=== PATIENT | male | born 1940 | race Caucasian/White ===

== ENCOUNTER 2017-12-02 19:46 | Inpatient (IN) | payer MEDICARE ==
[2017-12-02] MEDS ORDERED: Acetaminophen TAB* 325 MG PO ONE (21:41)
[2017-12-02] MEDS ORDERED: NS 0.9% 1000 ML* 1,000 ML IV ONE (21:43)
[2017-12-02 22:17] LABS: ABS Basophils 0 10^3/ul (0-0.2); ABS Eosinophils 0 10^3/ul (0-0.6); ABS Lymphocytes 0.4 10^3/ul (1.0-4.8); ABS Monocytes 0.9 10^3/ul (0-0.8); ABS Neutrophils 9.9 10^3/ul (1.5-7.7); ABS Nucleated RBC 0 10^3/ul; Eosinophil % 0.1 % (0-6); Hematocrit 41 % (42-52); Hemoglobin 14.6 g/dl (14.0-18.0); Lymphocyte % 3.7 % (25-47); Mean Corpuscular HGB Conc 36 g/dl (31-36); Mean Corpuscular Hemoglobin 31 pg (27-31); Mean Corpuscular Volume 88 fL (80-94); Mean Platelet Volume 8 um3 (7.4-10.4); Nucleated Red Blood Cells % 0.1; Platelet Count 187 10^3/ul (150-450); Red Blood Count 4.65 10^6/ul (4.0-5.4); Red Cell Distribution Width 13 % (10.5-15); White Blood Count 11.3 10^3/ul (3.5-10.8)
[2017-12-02 22:27] LABS: INR 1.14 (0.77-1.02)
[2017-12-02 22:32] LABS: EGFR Non-African American 91.1 (>60)
[2017-12-02] MEDS ORDERED: Acetaminophen TAB* 325 MG PO PRN (23:19)
--- NOTE | 2017-12-02 23:34 | ED ---
Ronen Mcintyre Angela, scribed for Deedee Wiseman MD on 12/02/17 at 2141 . Complex/Multi-Sys Presentation - HPI Summary HPI Summary: This pt is a 77 y/o male, accompanied by , presenting to [facility] c/o nonproductive cough x1 week. Per , pt has become disoriented today. Pt had a fever today at 101 F. additionally notes the pt fell today 2-3 times and vomited today about 3 times. Pt denies SOB. reports the pt saw his PCP, Dr. Fink, 3 days ago but was not given medications and was told to call back if pt's symptoms persisted. Pt called back his PCP's office today and was prescribed Zithromax and cough medicine, pt was not seen in the office today. Last time pt took Zithromax was at 14:00 today. He also took 2 doses of the cough medicine today. Pt is currently on atorvastatin, flexetin, baby aspirin. - History Of Current Complaint Chief Complaint: EDFever Hx Obtained From: Patient, Family/Commercial Coordinator - Onset/Duration: Lasting Days, Still Present Timing: Days Severity Currently: Moderate Location: Negative Aggravating Factor(s): nothing Alleviating Factor(s): nothing Associated Signs And Symptoms: Positive: Cough, Nausea, Vomiting, Fever, Other - POS: disorientation, multiple falls today.. Negative: SOB - Allergies/Home Medications Allergies/Adverse Reactions: Allergies Allergy/AdvReac Type Severity Reaction Status Date / Time MS Sulfa Antibiotics Allergy GI Upset Verified 07/09/14 13:16 [Sulfa Antibiotics] Home Medications: Home Medications Aspirin EC Low Dose* [Ecotrin EC Low Dose 81 MG*] 81 mg PO DAILY 12/02/17 [ History Confirmed 12/02/17] Atorvastatin* [Lipitor*] 10 mg PO DAILY 12/02/17 [History Confirmed 12/02/17] FLUoxetine CAP* [PROzac CAP*] 10 mg PO DAILY 12/02/17 [History Confirmed ] Losartan TAB* [Cozaar TAB*] 100 mg PO DAILY 12/02/17 [History Confirmed 12/02/17 ] Tamsulosin CAP* [Flomax CAP*] 0.4 mg PO DAILY 12/02/17 [History Confirmed ] amLODIPine TAB* [Norvasc 5 mg TAB*] 10 mg PO DAILY 12/02/17 [History Confirmed 12/02/17] PMH/Surg Hx/FS Hx/Imm Hx Endocrine/Hematology History: Denies: Hx Diabetes Cardiovascular History: Denies: Hx Hypertension, Hx Pacemaker/ICD History: Denies: Hx Renal Disease Sensory History: Denies: Hx Hearing Aid Psychiatric History: Denies: Hx Panic Disorder - Cancer History Cancer Type, Location and Year: 1996- BLADDER Hx Chemotherapy: Yes - Surgical History Surgery Procedure, Year, and Place: DISCETOMY - L5 - 1996- [facility]. STAGE 1 - MAGLINANCY REMOVED FROM BLADDER W/ CHEMO - 12 YRS AGO. CHOLECYTECTOMY-1969. Rt KNEE - ARTHROSCOPIC. PINIDAL CYST -1959 Infectious Disease History: No Infectious Disease History: Denies: Traveled Outside the [place] in Last 30 Days - Family History Known Family History: Positive: Diabetes - Father - Social History Alcohol Use: None Substance Use Type: Reports: None Smoking Status (MU): Never Smoked Tobacco Review of Systems Positive: Fever Positive: Cough Positive: Vomiting, Nausea Neurological: Other - disorientation, multiple falls All Other Systems Reviewed And Are Negative: Yes Physical Exam - Summary Physical Exam Summary: VITAL SIGNS: Reviewed. GENERAL: Patient is a well-developed and nourished male who is lying comfortable in the stretcher. Patient is not in any acute respiratory distress. HEAD AND FACE: No signs of trauma. No ecchymosis, hematomas or skull depressions. No sinus tenderness. EYES: PERRLA, EOMI x 2, No injected conjunctiva, no nystagmus. EARS: Hearing grossly intact. Ear canals and tympanic membranes are within normal limits. MOUTH: Oropharynx within normal limits. NECK: Supple, trachea is midline, no adenopathy, no JVD, no carotid bruit, no c- spine tenderness, neck with full ROM. CHEST: Symmetric, no tenderness at palpation LUNGS: Clear to auscultation bilaterally. No wheezing or crackles. CVS: Regular rate and rhythm, S1 and S2 present, no murmurs or gallops appreciated. ABDOMEN: Soft, non-tender. No signs of distention. No rebound no guarding, and no masses palpated. Bowel sounds are normal. EXTREMITIES: FROM in all major joints, no edema, no cyanosis or clubbing. NEURO: Alert and oriented x 3. No acute neurological deficits. Speech is normal and follows commands. SKIN: Dry and warm Triage Information Reviewed: Yes Vital Signs On Initial Exam: Initial Vitals Temp Pulse Resp BP Pulse Ox 100.7 F 71 18 157/59 90 12/02/17 19:51 12/02/17 19:51 12/02/17 19:51 12/02/17 19:51 12/02/17 19:51 Vital Signs Reviewed: Yes Diagnostics - Vital Signs Vital Signs Temp Pulse Resp BP Pulse Ox 12/02/17 19:51 100.7 F 71 18 157/59 90 - Laboratory Result Diagrams: 12/02/17 22:04 12/02/17 22:04 Lab Statement: Any lab studies that have been ordered have been reviewed, and results considered in the medical decision making process. - Radiology Chest XR Xray Interpretation: No Acute Changes - normal chest XR. Radiology Interpretation Completed By: ED Physician Complex Multi-Symp Course/Dx Assessment/Plan: This pt is a 77 y/o male, accompanied by , presenting to [facility] c/o nonproductive cough x1 week. Per , pt has become disoriented today. Pt had a fever today at 101 F. additionally notes the pt fell today 2-3 times and vomited today about 3 times. Pt denies SOB. Pt was prescribed Zithromax and cough medicine today by PCP. Test results show WBC of 11.3, sodium of 125, glucose of 168. Influenza A and B is negative. Chest XR is negative. In the ED course, the pt was given IV fluids and Tylenol. I discussed pt care with Dr. Stephens, hospitalist, who has agreed to admit the pt. Dx: confusion and weakness. - Diagnoses Provider Diagnoses: Weakness, Confusion - Physician Notifications Discussed Care Of Patient With: Awilda Stephens Time Discussed With Above Provider: 22:40 Instructed by Provider To: Other - I discussed pt care with Dr. Stephens, hospitalist, who has agreed to admit the pt. Discharge - Discharge Plan Condition: Stable Disposition: ADMITTED TO [facility] Referrals: Hannah Fink MD [Primary Care Provider] - The documentation as recorded by the Ronen white Angela accurately reflects the service I personally performed and the decisions made by me, Deedee Wiseman MD.
--- NOTE | 2017-12-03 00:52 | HP ---
CC: Dr. Fink * HISTORY AND PHYSICAL: DATE OF ADMISSION: 12/02/17 PRIMARY CARE PROVIDER: Dr. Fink. UROLOGIST: Dr. Soriano. CHIEF COMPLAINT: Disorientation, vomiting, and fever. HISTORY OF PRESENT ILLNESS: Mr. Tabor is a 77-year-old male who for the last 1 week has been ill. He saw his primary care provider, Dr. Fink, towards beginning of his illness and she felt that he likely had a viral illness. He was informed to contact the office if he continued to worsen. The patient contacted Dr. Fink's office and stated that he was not improving and therefore , was prescribed a Z-Kedar to be started today. The patient did take 500 mg of azithromycin. Additionally, he took a dose of the Robitussin with codeine cough syrup he had been given earlier in the week. Following the administration of the azithromycin and Robitussin with codeine, the patient began to have vomiting. Per the patient's , he was vomiting all afternoon. He was noted to be weak. He was disoriented and very confused. She stated for example that he looked at his phone, not knowing how to use it. Additionally, he fell. The patient has had significant head/nasal congestion. He has been bringing up sputum. He does not know if it is discolored. He did have a fever of 102.6 on evening of 12/02/17 prior to coming to the emergency room. The patient states that he is feeling much better after arriving to the emergency room. His also notes that overall his mental status is back to normal. PAST MEDICAL HISTORY: 1. History of bladder cancer. 2. Hypertension. 3. BPH. 4. Hyperlipidemia. 5. Depression. PAST SURGICAL HISTORY: 1. TURBT. 2. Lumbar back surgery. 3. Pilonidal cyst removal. MEDICATIONS: 1. Flomax 0.4 mg p.o. daily. 2. Losartan 100 mg p.o. daily. 3. Prozac 10 mg p.o. daily. 4. Amlodipine 10 mg p.o. daily. 5. Lipitor 10 mg p.o. daily. 6. Aspirin 81 mg p.o. daily. ALLERGIES: BACTRIM. FAMILY HISTORY: Mom is at the age of 79 from ruptured aortic aneurysm. Dad at the age of 87 of "old age." The patient has 2 siblings that are in their mid 80s and 3 brothers that are living. SOCIAL HISTORY: The patient is a former smoker, he quit at the age of 35. He drinks 2 glasses of wine per day. 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 He is . He has 3 children. He indicates that his Jodi is his healthcare proxy. REVIEW OF SYSTEMS: A complete 11-system review of systems is obtained. Pertinent positives and negatives are as per the HPI and in addition, the patient does admit to fever and very poor appetite over the last 1 week. PHYSICAL EXAMINATION GENERAL: The patient is a well-developed elderly male sitting in the stretcher , in no acute distress. VITAL SIGNS: Blood pressure 157/59, pulse 71, respirations 18, temp 100.7, O2 sat 90% on room air. HEENT: Pupils are equal, round, and reactive to light. Extraocular muscles are intact. Oropharynx is clear. Oral mucosa is moist. There is no submandibular, cervical, or supraclavicular adenopathy. Thyroid is not enlarged. No thyroid nodules are noted. PULMONARY: Lungs are clear to auscultation bilaterally, though breath sounds are somewhat diminished throughout. CARDIAC: Normal S1, S2. Regular rate and rhythm. I do not appreciate any murmurs. There is no lower extremity edema. ABDOMEN: Bowel sounds present. Abdomen is soft, nontender, nondistended. MUSCULOSKELETAL: There is no cyanosis or clubbing of the digits. There is full active range of motion of all 4 extremities. SKIN: Warm and dry. There are no rashes. NEUROLOGIC: Cranial nerves II through XII are grossly intact. Sensation is intact to light touch throughout. Strength is 5/5 and symmetric in both upper and lower extremities bilaterally. PSYCH: The patient is alert, he is oriented x3. Affect appears appropriate. LABORATORY DATA: WBC 11.3, hemoglobin 14.6, hematocrit 41, platelets 187,000. INR 1.14. Sodium 125, potassium 3.9, chloride 94, CO2 of 21, BUN 12, creatinine 0.82, glucose 168, lactic acid 1.7, calcium 9.3, bilirubin 1.2, AST 17, ALT 20, alk phos 77, troponin 0.01. Albumin 4.1. Influenza A and B negative. IMAGING: Chest x-ray to my interpretation appears clear. ASSESSMENT AND PLAN: Mr. Tabor is a 77-year-old male with a history of hypertension, hyperlipidemia, benign prostatic hypertrophy who presents to the emergency room with complaints of confusion, weakness, and fever and is admitted for possible pneumonia. 1. Possible community acquired pneumonia. The patient has been managing his symptoms conservatively up until the day of admission when he began a Z-Kedar. Following the first dose of Z-Kedar, the patient did develop significant vomiting , disorientation and weakness. He also took a dose of Robitussin with codeine. I am more suspicious the patient may have developed vomiting secondary to the Robitussin with codeine. The patient will continue on azithromycin, though we will change to IV and add ceftriaxone 1 g IV daily. The patient will have a procalcitonin added to his labs from the emergency room as well as a CRP. The patient will be under observation status. His O2 saturation is marginal at 90% . We will monitor this closely. 2. Hyponatremia. I suspect this is secondary to volume depletion/dehydration. Will give NS overnight and recheck BMP in the morning. 3. Hypertension. The patient's blood pressure is under fair control. He will be maintained on his usual home medication regimen and adjustments will be made if necessary. 4. Benign prostatic hypertrophy. Continue Flomax. 5. Hyperlipidemia. Continue Lipitor. 6. DVT prophylaxis. According to the Adult Thrombosis Prophylaxis Risk Factor Assessment Guide, the patient had total risk factor score of 6, making him high risk. He will be placed on heparin 5000 units subcutaneous q.8 hours. 7. Code status is full. TIME SPENT: Sixty-five minutes was spent admitting this patient. [id number]/CPS #: [id number] MTDD
[2017-12-03 00:55] LABS: Urine Appearance Clear; Urine Blood Negative (Negative); Urine Color Yellow; Urine Ketones Negative (Negative); Urine Protein 1+(30 mg/dL) (Negative); Urine Specific Gravity 1.011 (1.010-1.030); Urine Urobilinogen Negative (Negative)
[2017-12-03] MEDS: NS 0.9% 1000 ML* 1,000 ML IV SCH ×2 (01:07→13:43)
[2017-12-03] MEDS: Benzonatate CAP* 100 MG PO PRN (04:44)
[2017-12-03] MEDS: Heparin VIAL(*) 5000 UNITS/ML VIAL (FIVE THOUSAND) SUBCUT SCH ×3 (05:34→21:27)
[2017-12-03 06:46] LABS: Hematocrit 40 % (42-52); Hemoglobin 14.2 g/dl (14.0-18.0); Mean Corpuscular HGB Conc 36 g/dl (31-36); Mean Corpuscular Hemoglobin 32 pg (27-31); Mean Corpuscular Volume 88 fL (80-94); Mean Platelet Volume 8 um3 (7.4-10.4); Platelet Count 192 10^3/ul (150-450); Red Blood Count 4.48 10^6/ul (4.0-5.4); Red Cell Distribution Width 13 % (10.5-15); White Blood Count 9.6 10^3/ul (3.5-10.8)
--- NOTE | 2017-12-03 07:27 | RAD ---
INDICATION: Cough. COMPARISON: There is a prior study from April 30, 2016. TECHNIQUE: A portable view of the chest was obtained. FINDINGS: Cardiac and mediastinal contours appear to be within normal limits. The lungs are clear. No pleural effusion is seen. IMPRESSION: NO EVIDENCE FOR ACUTE DISEASE.
[2017-12-03] MEDS ORDERED: cefTRIAXone(*) 1 GM in NS 0.9% 50 ML* 50 ML IVPB SCH (09:00)
[2017-12-03] MEDS: Losartan TAB* 25 MG PO SCH (09:32)
[2017-12-03] MEDS: Aspirin EC Low Dose* 81 MG TAB.EC PO SCH (09:33)
[2017-12-03] MEDS: FLUoxetine CAP* 10 MG PO SCH (09:33)
[2017-12-03] MEDS: Tamsulosin CAP* 0.4 MG PO SCH (09:33)
[2017-12-03] MEDS: amLODIPine TAB* 5 MG PO SCH (09:33)
[2017-12-03] MEDS: Atorvastatin* 10 MG TAB PO SCH (09:33)
[2017-12-03] MEDS: Azithromycin IV(*) 500 MG in NS 0.9% 250 ML* 250 ML IVPB SCH (10:15)
--- NOTE | 2017-12-03 17:26 | PN ---
Subjective Date of Service: 12/03/17 Interval History: feeling a little better today. still with a cough productive of thick sputum. desaturated to 80s at rest. Family History: Unchanged from Admission Social History: Unchanged from Admission Past Medical History: Unchanged from Admission Objective Active Medications: Acetaminophen (Tylenol Tab*) 650 mg PO Q4H PRN PRN Reason: pain/fever Amlodipine Besylate (Norvasc Tab*) 10 mg PO DAILY [facility] Last Admin: 12/03/17 09:33 Dose: 10 mg Aspirin (Aspirin Ec Low Dose*) 81 mg PO DAILY [facility] Last Admin: 12/03/17 09:33 Dose: 81 mg Atorvastatin Calcium (Lipitor*) 10 mg PO DAILY [facility] Last Admin: 12/03/17 09:33 Dose: 10 mg Benzonatate (Tessalon Cap*) 200 mg PO TID PRN PRN Reason: COUGH Last Admin: 12/03/17 04:44 Dose: 200 mg Fluoxetine HCl (Prozac Cap*) 10 mg PO DAILY [facility] Last Admin: 12/03/17 09:33 Dose: 10 mg Heparin Sodium (Porcine) (Heparin Vial(*)) 5,000 units SUBCUT Q8HR [facility] Last Admin: 12/03/17 13:43 Dose: 5,000 units Sodium Chloride (Ns 0.9% 1000 Ml*) 1,000 mls @ 100 mls/hr IV PER RATE [facility] Last Admin: 12/03/17 13:43 Dose: 100 mls/hr Azithromycin 500 mg/ Sodium (Chloride) 250 mls @ 250 mls/hr IVPB Q24H [facility] Last Admin: 12/03/17 10:15 Dose: 250 mls/hr Ceftriaxone Sodium 1 gm/ (Dextrose) 50 mls @ 200 mls/hr IVPB Q24H [facility] Losartan Potassium (Cozaar Tab*) 100 mg PO DAILY [facility] Last Admin: 12/03/17 09:32 Dose: 100 mg Tamsulosin HCl (Flomax Cap*) 0.4 mg PO DAILY [facility] Last Admin: 12/03/17 09:33 Dose: 0.4 mg Vital Signs - 8 hr 12/03/17 12/03/17 12/03/17 11:35 13:49 16:31 Temperature 99.7 F 98.9 F 98.8 F Pulse Rate 65 56 Respiratory 17 24 Rate Blood Pressure 114/89 116/45 (mmHg) O2 Sat by Pulse 90 95 Oximetry Oxygen Devices in Use Now: None Appearance: well appearing, no distress Eyes: No Scleral Icterus Ears/Nose/Mouth/Throat: NL Teeth, Lips, Gums Neck: NL Appearance and Movements; NL JVP Respiratory: Symmetrical Chest Expansion and Respiratory Effort, - - few scattered rhonchi Cardiovascular: NL Sounds; No Murmurs; No JVD, RRR Abdominal: NL Sounds; No Tenderness; No Distention Lymphatic: No Cervical Adenopathy Extremities: No Edema Skin: No Rash or Ulcers Neurological: Alert and Oriented x 3 Result Diagrams: 12/03/17 06:09 12/03/17 06:09 Microbiology and Other Data: Microbiology 12/03/17 13:17 Gram Stain - Final Sputum Assess/Plan/Problems-Billing Assessment: 77 yo man admitted with cough and nausea/vomiting found to have a normal chest xray but being treated for CAP. - Patient Problems (1) Community acquired pneumonia Current Visit: Yes Status: Acute Code(s): J18.9 - PNEUMONIA, UNSPECIFIED ORGANISM SNOMED Code(s): 376875247 Comment: Continue ceftriaxone/azithromycin check sputum cultures may have been too early to see consolidation on cxr yesterday; will continue abx for 5 day course (2) Hyponatremia Current Visit: Yes Status: Acute Code(s): E87.1 - HYPO-OSMOLALITY AND HYPONATREMIA SNOMED Code(s): 39608002 Comment: likely hypovolemic; improving with saline (3) Nausea & vomiting Current Visit: Yes Status: Acute Code(s): R11.2 - NAUSEA WITH VOMITING, UNSPECIFIED SNOMED Code(s): 71787301 Comment: I suspect this was from po antibiotics, but will check KUB if still nauseous and no bowel movement Status and Disposition: inpatient for pneumonia
[2017-12-04] MEDS ORDERED: Furosemide IV* 10 MG/ML 2 ML VIAL (20 MG) IV ONE (01:09)
[2017-12-04] MEDS: Benzonatate CAP* 100 MG PO PRN (01:39)
[2017-12-04] MEDS: Heparin VIAL(*) 5000 UNITS/ML VIAL (FIVE THOUSAND) SUBCUT SCH ×3 (05:31→22:49)
[2017-12-04] MEDS: Aspirin EC Low Dose* 81 MG TAB.EC PO SCH (09:07)
[2017-12-04] MEDS: Atorvastatin* 10 MG TAB PO SCH (09:07)
[2017-12-04] MEDS: Tamsulosin CAP* 0.4 MG PO SCH (09:07)
[2017-12-04] MEDS: amLODIPine TAB* 5 MG PO SCH (09:07)
[2017-12-04] MEDS: Losartan TAB* 25 MG PO SCH (09:07)
[2017-12-04] MEDS: cefTRIAXone(*) 1 GM in D5W 50 ML BAG* 50 ML IVPB SCH (09:07)
[2017-12-04] MEDS: FLUoxetine CAP* 10 MG PO SCH (09:07)
[2017-12-04] MEDS: Azithromycin IV(*) 500 MG in NS 0.9% 250 ML* 250 ML IVPB SCH (09:41)
--- NOTE | 2017-12-04 13:47 | RAD ---
Indication: Hypoxia, cardiovascular disease. Dehydration. Pneumonia. Comparison: December 02, 2017 Technique: Upright AP 0050 hours. Report: Suboptimal inspiration with associated crowding of the pulmonary markings and subsegmental atelectasis. Nonetheless the central pulmonary vasculature appears prominent. Mild prominence of interstitial markings with thickened peripheral interlobular septa. Grossly clear pleural spaces. Negative for pneumothorax top normal heart size. IMPRESSION: While low lung volumes limits specificity the radiographic appearance suspicious for mild pulmonary vascular congestion and interstitial edema. Correlate with clinical assessment.
--- NOTE | 2017-12-04 15:47 | PN ---
Subjective Date of Service: 12/04/17 Interval History: feels better this morning. still coughing up yellow sputum but it is improving. no fevers. His and daughter are at the bedside. Family History: Unchanged from Admission Social History: Unchanged from Admission Past Medical History: Unchanged from Admission Objective Active Medications: Acetaminophen (Tylenol Tab*) 650 mg PO Q4H PRN PRN Reason: pain/fever Amlodipine Besylate (Norvasc Tab*) 10 mg PO DAILY [facility] Last Admin: 12/04/17 09:07 Dose: 10 mg Aspirin (Aspirin Ec Low Dose*) 81 mg PO DAILY [facility] Last Admin: 12/04/17 09:07 Dose: 81 mg Atorvastatin Calcium (Lipitor*) 10 mg PO DAILY [facility] Last Admin: 12/04/17 09:07 Dose: 10 mg Benzonatate (Tessalon Cap*) 200 mg PO TID PRN PRN Reason: COUGH Last Admin: 12/04/17 01:39 Dose: 200 mg Fluoxetine HCl (Prozac Cap*) 10 mg PO DAILY [facility] Last Admin: 12/04/17 09:07 Dose: 10 mg Heparin Sodium (Porcine) (Heparin Vial(*)) 5,000 units SUBCUT Q8HR [facility] Last Admin: 12/04/17 13:32 Dose: 5,000 units Azithromycin 500 mg/ Sodium (Chloride) 250 mls @ 250 mls/hr IVPB Q24H [facility] Last Admin: 12/04/17 09:41 Dose: 250 mls/hr Ceftriaxone Sodium 1 gm/ (Dextrose) 50 mls @ 200 mls/hr IVPB Q24H [facility] Last Admin: 12/04/17 09:07 Dose: 200 mls/hr Losartan Potassium (Cozaar Tab*) 100 mg PO DAILY [facility] Last Admin: 12/04/17 09:07 Dose: 100 mg Tamsulosin HCl (Flomax Cap*) 0.4 mg PO DAILY [facility] Last Admin: 12/04/17 09:07 Dose: 0.4 mg Vital Signs - 8 hr 12/04/17 12/04/17 12/04/17 07:55 08:00 10:32 Temperature 98.6 F Pulse Rate Respiratory 18 Rate Blood Pressure 120/45 (mmHg) O2 Sat by Pulse 95 95 90 Oximetry 12/04/17 10:52 Temperature 97.9 F Pulse Rate 44 Respiratory 16 Rate Blood Pressure 116/41 (mmHg) O2 Sat by Pulse 96 Oximetry Oxygen Devices in Use Now: Nasal Cannula Appearance: alert, no distress Eyes: No Scleral Icterus Ears/Nose/Mouth/Throat: NL Teeth, Lips, Gums Neck: NL Appearance and Movements; NL JVP, - - flat jugular veins Respiratory: Symmetrical Chest Expansion and Respiratory Effort, - - no rhonchi Cardiovascular: NL Sounds; No Murmurs; No JVD, RRR Abdominal: NL Sounds; No Tenderness; No Distention Lymphatic: No Cervical Adenopathy Extremities: - - trace edema Skin: No Rash or Ulcers Neurological: Alert and Oriented x 3 Result Diagrams: 12/03/17 06:09 12/03/17 06:09 Microbiology and Other Data: Microbiology 12/03/17 13:17 Gram Stain - Final Sputum Assess/Plan/Problems-Billing Assessment: 77 yo man admitted with cough and nausea/vomiting found to have a normal chest xray but being treated for CAP. - Patient Problems (1) Community acquired pneumonia Current Visit: Yes Status: Acute Code(s): J18.9 - PNEUMONIA, UNSPECIFIED ORGANISM SNOMED Code(s): 193444061 Comment: Continue ceftriaxone/azithromycin sputum cultures unrevealing while xray shows concern for vascular congesion, clinically he has pneumonia and not volume overload, so will continue treating for CAP x 5 days (2) Hyponatremia Current Visit: Yes Status: Acute Code(s): E87.1 - HYPO-OSMOLALITY AND HYPONATREMIA SNOMED Code(s): 61293333 Comment: likely hypovolemic; improved with saline at admission. (3) Nausea & vomiting Current Visit: Yes Status: Acute Code(s): R11.2 - NAUSEA WITH VOMITING, UNSPECIFIED SNOMED Code(s): 28698107 Comment: I suspect this was from po antibiotics. resolved this morning. (4) Acute hypoxemic respiratory failure Current Visit: Yes Status: Acute Code(s): J96.01 - ACUTE RESPIRATORY FAILURE WITH HYPOXIA SNOMED Code(s): 059060583 Comment: likely due to pneumonia. amb pulse ox prior to discharge. Status and Disposition: inpatient for pneumonia
[2017-12-05] MEDS: Heparin VIAL(*) 5000 UNITS/ML VIAL (FIVE THOUSAND) SUBCUT SCH ×3 (04:52→21:40)
[2017-12-05 05:41] LABS: ABS Basophils 0 10^3/ul (0-0.2); ABS Eosinophils 0.1 10^3/ul (0-0.6); ABS Lymphocytes 0.7 10^3/ul (1.0-4.8); ABS Monocytes 0.7 10^3/ul (0-0.8); ABS Neutrophils 4.9 10^3/ul (1.5-7.7); ABS Nucleated RBC 0 10^3/ul; Eosinophil % 1.9 % (0-6); Hematocrit 38 % (42-52); Hemoglobin 13.6 g/dl (14.0-18.0); Lymphocyte % 10.9 % (25-47); Mean Corpuscular HGB Conc 36 g/dl (31-36); Mean Corpuscular Hemoglobin 31 pg (27-31); Mean Corpuscular Volume 87 fL (80-94); Mean Platelet Volume 8 um3 (7.4-10.4); Nucleated Red Blood Cells % 0; Platelet Count 184 10^3/ul (150-450); Red Blood Count 4.35 10^6/ul (4.0-5.4); Red Cell Distribution Width 13 % (10.5-15); White Blood Count 6.4 10^3/ul (3.5-10.8)
[2017-12-05] MEDS: Losartan TAB* 25 MG PO SCH (08:12)
[2017-12-05] MEDS: amLODIPine TAB* 5 MG PO SCH (08:23)
[2017-12-05] MEDS: Aspirin EC Low Dose* 81 MG TAB.EC PO SCH (08:24)
[2017-12-05] MEDS: Tamsulosin CAP* 0.4 MG PO SCH (08:24)
[2017-12-05] MEDS: Atorvastatin* 10 MG TAB PO SCH (08:24)
[2017-12-05] MEDS: FLUoxetine CAP* 10 MG PO SCH (08:24)
[2017-12-05] MEDS: cefTRIAXone(*) 1 GM in D5W 50 ML BAG* 50 ML IVPB SCH (09:01)
[2017-12-05] MEDS: Azithromycin IV(*) 500 MG in NS 0.9% 250 ML* 250 ML IVPB SCH (09:32)
[2017-12-05] MEDS: Oseltamivir CAP* 75 MG CAP PO SCH ×2 (11:26→21:40)
--- NOTE | 2017-12-05 14:46 | PN ---
Subjective Date of Service: 12/05/17 Interval History: desaturated to mid-80s while sleeping overnight on RA, 2L applied. walked without o2 yesterday, felt good. but does not feel good this morning, achy with productive cough, no fevers. Family History: Unchanged from Admission Social History: Unchanged from Admission Past Medical History: Unchanged from Admission Objective Active Medications: Acetaminophen (Tylenol Tab*) 650 mg PO Q4H PRN PRN Reason: pain/fever Amlodipine Besylate (Norvasc Tab*) 10 mg PO DAILY [facility] Last Admin: 12/05/17 08:23 Dose: 10 mg Aspirin (Aspirin Ec Low Dose*) 81 mg PO DAILY [facility] Last Admin: 12/05/17 08:24 Dose: 81 mg Atorvastatin Calcium (Lipitor*) 10 mg PO DAILY [facility] Last Admin: 12/05/17 08:24 Dose: 10 mg Azithromycin (Zithromax Tab*) 250 mg PO DAILY [facility] Benzonatate (Tessalon Cap*) 200 mg PO TID PRN PRN Reason: COUGH Last Admin: 12/04/17 01:39 Dose: 200 mg Fluoxetine HCl (Prozac Cap*) 10 mg PO DAILY [facility] Last Admin: 12/05/17 08:24 Dose: 10 mg Heparin Sodium (Porcine) (Heparin Vial(*)) 5,000 units SUBCUT Q8HR [facility] Last Admin: 12/05/17 14:23 Dose: 5,000 units Ceftriaxone Sodium 1 gm/ (Dextrose) 50 mls @ 200 mls/hr IVPB Q24H [facility] Last Admin: 12/05/17 09:01 Dose: 200 mls/hr Losartan Potassium (Cozaar Tab*) 100 mg PO DAILY [facility] Last Admin: 12/05/17 08:12 Dose: Not Given Oseltamivir Phosphate (Tamiflu Cap*) 75 mg PO BID [facility] Stop: 12/09/17 21:01 Last Admin: 12/05/17 11:26 Dose: 75 mg Tamsulosin HCl (Flomax Cap*) 0.4 mg PO DAILY [facility] Last Admin: 12/05/17 08:24 Dose: 0.4 mg Vital Signs - 8 hr 12/05/17 12/05/17 12/05/17 07:15 08:00 11:40 Temperature 98.1 F 97.8 F Pulse Rate 42 47 Respiratory 16 20 16 Rate Blood Pressure 138/46 121/48 (mmHg) O2 Sat by Pulse 93 93 93 Oximetry Oxygen Devices in Use Now: Nasal Cannula Appearance: alert, no distress Eyes: No Scleral Icterus Ears/Nose/Mouth/Throat: NL Teeth, Lips, Gums Neck: NL Appearance and Movements; NL JVP Respiratory: - - rhonchi right base Cardiovascular: - - bradycardic, no murmurs Abdominal: NL Sounds; No Tenderness; No Distention Lymphatic: No Cervical Adenopathy Extremities: No Edema Skin: No Rash or Ulcers Neurological: Alert and Oriented x 3 Result Diagrams: 12/05/17 05:21 12/05/17 05:21 Microbiology and Other Data: Microbiology 12/03/17 13:17 Gram Stain - Final Sputum Assess/Plan/Problems-Billing Assessment: 77 yo man admitted with cough and nausea/vomiting found to have a normal chest xray but being treated for CAP. - Patient Problems (1) Community acquired pneumonia Current Visit: Yes Status: Acute Code(s): J18.9 - PNEUMONIA, UNSPECIFIED ORGANISM SNOMED Code(s): 713801256 Comment: Continue ceftriaxone/azithromycin sputum cultures unrevealing while xray shows concern for vascular congesion, clinically he has pneumonia and not volume overload, so will continue treating for CAP x 5 days add tamiflu today; suspect false negative (2) Hyponatremia Current Visit: Yes Status: Acute Code(s): E87.1 - HYPO-OSMOLALITY AND HYPONATREMIA SNOMED Code(s): 24567467 Comment: likely hypovolemic; improved with saline at admission. (3) Nausea & vomiting Current Visit: Yes Status: Acute Code(s): R11.2 - NAUSEA WITH VOMITING, UNSPECIFIED SNOMED Code(s): 64292865 Comment: I suspect this was from po antibiotics. resolved this morning. (4) Acute hypoxemic respiratory failure Current Visit: Yes Status: Acute Code(s): J96.01 - ACUTE RESPIRATORY FAILURE WITH HYPOXIA SNOMED Code(s): 884396324 Comment: likely due to pneumonia. amb pulse ox prior to discharge. also check TTE Status and Disposition: inpatient for pneumonia
[2017-12-05] MEDS: Fluticasone NASAL SPRAY 50MCG* 16 gm SPRAY BTL BOTH NARES SCH (23:07)
[2017-12-06] MEDS ORDERED: Ondansetron INJ* 2 MG/ML VIAL IV PRN (03:35)
[2017-12-06] MEDS ORDERED: Ondansetron INJ* 2 MG/ML VIAL ONE (03:37)
[2017-12-06] MEDS: Heparin VIAL(*) 5000 UNITS/ML VIAL (FIVE THOUSAND) SUBCUT SCH ×2 (06:25→14:59)
[2017-12-06] MEDS ORDERED: Azithromycin TAB* 250 MG PO SCH (09:00)
[2017-12-06] MEDS: Oseltamivir CAP* 75 MG CAP PO SCH (10:07)
[2017-12-06] MEDS: Aspirin EC Low Dose* 81 MG TAB.EC PO SCH (10:08)
[2017-12-06] MEDS: FLUoxetine CAP* 10 MG PO SCH (10:09)
[2017-12-06] MEDS: Tamsulosin CAP* 0.4 MG PO SCH (10:09)
[2017-12-06] MEDS: Atorvastatin* 10 MG TAB PO SCH (10:10)
[2017-12-06] MEDS: Fluticasone NASAL SPRAY 50MCG* 16 gm SPRAY BTL BOTH NARES SCH (10:10)
[2017-12-06] MEDS: cefTRIAXone(*) 1 GM in D5W 50 ML BAG* 50 ML IVPB SCH (10:16)
[2017-12-06] MEDS: amLODIPine TAB* 5 MG PO SCH (10:16)
[2017-12-06] MEDS: Losartan TAB* 25 MG PO SCH (10:17)
--- NOTE | 2017-12-06 15:44 | ECHO ---
Patient: EMANUEL PEREZ [facility] Rec#: [id number] : 1940 Date: 12/06/2017 Age: 77y Height: 185.4 cm / 73.0 in Weight: 104.8 kg / 231.0 lbs Sex: M BSA: 2.3 Room#: 421 Admit Date#: 12/02/2017 Type: Inpatient Referring: Althea Fiore MD Reading: Raman Noel MD Health And Safety Manager: Ana Butt RN RDCS CC: Hannah Fink MD Transthoracic Echocardiogram Indication: Acute respiratory failure, hypoxia BP: 118/45 HR: 53 Rhythm: Bradycardia Findings History: HTN, dyslipidemia Technical Comments: The study quality is fair. The study is technically limited due to poor apical windows. The study is technically limited due to patient body habitus. Completed at 1215. Left Ventricle: The left ventricular chamber size is normal. Mild to moderate concentric left ventricular hypertrophy is observed. Global left ventricular wall motion and contractility are within normal limits. There is normal left ventricular systolic function. The estimated ejection fraction is 55-60%. There is an E to A reversal in the mitral valve flow pattern suggestive of diastolic dysfunction. Left Atrium: The left atrium is mildly dilated. Right Ventricle: The right ventricular cavity size is normal. The right ventricular global systolic function is normal. Right Atrium: The right atrium is not well visualized. Aortic Valve: The aortic valve is trileaflet. The aortic valve leaflets are mildly thickened. There is no evidence of aortic regurgitation. There is no evidence of aortic stenosis. Mitral Valve: There is mitral annular calcification. The mitral valve leaflets are mildly thickened. There is a trace of mitral regurgitation. There is no evidence of mitral stenosis. Tricuspid Valve: The tricuspid valve leaflets are normal. There is trace tricuspid regurgitation. Unable to estimate the right ventricular systolic pressure. There is no tricuspid stenosis. Pulmonic Valve: The pulmonic valve appears normal. There is mild pulmonic regurgitation. There is no pulmonic stenosis. Pericardium: There is no significant pericardial effusion. A pericardial fat pad is visualized. Aorta: There is no dilatation of the ascending aorta. The aortic arch is not well visualized. There is no dilation of the aortic root. Pulmonary Artery: The main pulmonary artery is not well visualized. Venous: The venous system is not well visualized. The inferior vena cava is not visualized. Conclusions Mild to moderate concentric left ventricular hypertrophy is observed. Global left ventricular wall motion and contractility are within normal limits. The estimated ejection fraction is 55-60%. The right ventricular global systolic function is normal. There is no evidence of aortic stenosis. There is a trace of mitral regurgitation. There is trace tricuspid regurgitation. Unable to estimate the right ventricular systolic pressure. There is no significant pericardial effusion. Measurements Name Value Normal Range RVIDd (AP) 2D 3.3 cm (0.9 - 2.6) RVDdMajor (2D) 4.3 cm (2.2 - 4.4) IVSd (2D) 1.3 cm (0.6 - 1) LVPWd (2D) 1.3 cm (0.6 - 1) LVIDd (2D) 4.2 cm (3.6 - 5.4) LVIDs (2D) 3.1 cm - LV FS (2D) 21 % (25 - 45) Aortic Annulus 2.2 cm (1.4 - 2.6) Ao root diameter (2D) 3.1 cm (2.1 - 3.5) Ascending Ao 3.1 cm (2.1 - 3.4) LA dimension (AP) 2D 4.7 cm (2.3 - 3.8) LAd ISD 4CH 6 cm (2.9 - 5.3) LA ISD 4CH W 5.5 cm (2.5 - 4.5) Name Value Normal Range LA ESV SP 4CH (A/L) 63 ml - LA ESV SP 2CH (A/L) 59 ml - LA ESV BP (A/L) 66 ml - LA ESV BP (A/L) index 29 ml/m2 - LA ESV SP 4CH (MOD) 62 ml - LA ESV SP 2CH (MOD) 57 ml - Name Value Normal Range MV E-wave Vmax 1.1 m/sec - MV deceleration time 267 msec - MV A-wave Vmax 1.3 m/sec - MV E:A ratio 0.8 ratio - LV septal e' Vmax 0.09 m/sec - LV lateral e' Vmax 0.09 m/sec - LV E:e' septal ratio 12.2 ratio - LV E:e' lateral ratio 12.2 ratio - Name Value Normal Range AV Vmax 1.5 m/sec - AV VTI 32.2 cm - AV peak gradient 8.8 mmHg - AV mean gradient 4.7 mmHg - LVOT Vmax 1.1 m/sec - LVOT VTI 26.7 cm - LVOT peak gradient 5 mmHg - LVOT mean gradient 2.6 mmHg - Name Value Normal Range PV Vmax 0.82 m/sec -
[2017-12-06 16:16] VITALS: BP 127/59
--- NOTE | 2017-12-07 13:59 | DS ---
CC: Dr. Fink.* DISCHARGE SUMMARY: DATE OF ADMISSION: 12/02/17 DATE OF DISCHARGE: 12/06/17 PRIMARY CARE PHYSICIAN: Dr. Fink. PRINCIPAL DISCHARGE DIAGNOSES: 1. Community-acquired pneumonia. 2. Influenza. SECONDARY DISCHARGE DIAGNOSES: 1. Sinus bradycardia. 2. Hypertension. 3. Hyperlipidemia. 4. BPH. PHYSICAL EXAMINATION AT THE TIME OF DISCHARGE: Temperature 98.3, heart rate 42 , respiratory rate 16, blood pressure 118/45, pulse ox 93% on room air. General : Alert, well-appearing male in no distress. HEENT: Pupils are equal, round, and reactive to light. No nystagmus. No pharyngeal exudates or erythema. Neck : No JVP. No cervical adenopathy. Chest: Bradycardic with no murmurs. PMI nondisplaced. Lungs with few rhonchi in the right base. Abdomen: Soft, nontender, nondistended with normoactive bowel sounds. Extremities: No edema, no rashes. Neurologic: Oriented x3 with strength 5/5 throughout. HOSPITAL COURSE BY PROBLEM: 1. Community-acquired pneumonia. Mr. Tabor' initial chest x-ray had no infiltrates on it, but given his clinical picture of pneumonia along with SIRS criteria at admission with a leukocytosis and a temperature of 100.7, he was admitted for community-acquired pneumonia. He had recently been started on azithromycin by his PCP 2 days prior, but had experienced some nausea and vomiting when taking the azithromycin. At admission here, he was started on IV azithromycin and IV ceftriaxone, which he tolerated well. A sputum culture was obtained, which showed yeast and normal peña. He is being continued on 1 more day of levofloxacin at the time of discharge to complete a 5-day course for community-acquired pneumonia. 2. Acute hypoxic respiratory failure likely related to #1. He required several days of antibiotic therapy before the oxygen was able to be titrated off. The chest x-ray was read as pulmonary edema and while clinically he was volume deplete, an echocardiogram was obtained which showed a normal LV and normal RV, but some evidence of diastolic dysfunction. Still I do not believe that pulmonary edema was present or had any role in his hypoxia and community- acquired pneumonia caused his symptoms and this finding. 3. Influenza. The flu swab was negative, however, given his symptoms and ongoing myalgias, several days into history of pneumonia, Tamiflu was begun. He will complete a 5-day course. 4. Sinus bradycardia. He was noted to be bradycardic for the duration of this admission with the heart rate in the 40s, however, he was asymptomatic throughout. Had good exercise tolerance and was not on any medications to promote bradycardia. 5. Hypertension. He was continued on his own home doses of amlodipine and losartan. 6. Disposition. Mr. Tabor was discharged to home after an ambulatory pulse ox remained above 88%. He will follow up with Dr. Fink on December 13. [id number]/[facility] #: [id number] [facility]
== END 2017-12-06 16:50 | disposition home or self-care (01) | DRG 193 ==
LOC: ED 19:46 → MED 23:15 → OBSVTOIN 12-03 08:30 → MED 12-05 16:05
PROVIDERS: ADMIT Hospitalist; ATTEND Internal Medicine
DX: J10.08 Influenza due to other identified influenza virus with other specified pneumonia (principal); J96.01 Acute respiratory failure with hypoxia; E87.1 Hypo-osmolality and hyponatremia; R00.1 Bradycardia, unspecified; E86.0 Dehydration; I10 Essential (primary) hypertension; E78.5 Hyperlipidemia, unspecified; N40.0 Benign prostatic hyperplasia without lower urinary tract symptoms; F32.9 Major depressive disorder, single episode, unspecified; Z85.51 Personal history of malignant neoplasm of bladder; Z79.82 Long term (current) use of aspirin; Z79.899 Other long term (current) drug therapy; Z88.1 Allergy status to other antibiotic agents; Z87.891 Personal history of nicotine dependence
CPT/HCPCS: 36415; 71045; 80048; 80053; 81003; 81015; 83605; 84145; 84484; 85025; 85027; 85610; 85730; 86140; 87040; 87070; 87077; 87086; 87205; 87502; 93005; 93306; 94760; 99284; A9270-GY; J0456; J0696; J1644; J1940; J2405

== ENCOUNTER 2018-04-06 06:11 | Day surgery (SDC) | payer MEDICARE ==
--- NOTE | 2018-04-03 17:20 | HP ---
CC: Hannah Fink MD * HISTORY AND PHYSICAL: DATE OF PLANNED ADMISSION AND SURGERY: 04/06/18 HISTORY OF PRESENT ILLNESS: Mr. Tbaor is a 77-year-old white male who is admitted with a suspicious bladder lesion for cystoscopy and transurethral resection. I have been following Mr. 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 He was treated by resection followed by intravesical BCG. He has done very well and has been followed with periodic cystoscopies with no evidence of recurrent disease and negative urine cytologies. Because of symptoms of bladder outlet obstruction and prostate enlargement he has been maintained on finasteride 5 mg and tamsulosin 0.4 mg daily with good bladder emptying and no bothersome voiding symptoms. He had a recent follow-up routine surveillance cystoscopy. There was a new finding of a 1 cm suspicious lesion in the right base of the bladder between the trigone and the bladder neck. Cystoscopy was negative for any other suspicious lesions. The patient is now admitted for transurethral resection of the above lesion. PAST MEDICAL HISTORY AND SYSTEM REVIEW: Relevant for a recent admission 4 months ago with community acquired pneumonia, and he was in acute hypoxemic respiratory failure. He was treated aggressively with antibiotics and was hospitalized for 4 days and was discharged on antibiotics. During that hospital stay, he was found to have bradycardia and was worked up with an echocardiogram, which showed good cardiac function and a good ejection fraction between 55% and 60%. The bradycardia was totally asymptomatic, not associated with any hypotension and he was managed conservatively for it. The patient is otherwise in good health. He has hypertension, well controlled on amlodipine 10 mg daily and losartan 100 mg daily. He is on 1 baby aspirin per day. He has mild hyperlipidemia, on atorvastatin 10 mg daily. He has anxiety and takes lorazepam 1 mg once or twice per day as needed. He is on tamsulosin 0.4 mg and on finasteride 5 mg for his enlarged prostate. He has slight elevation of his blood sugar, but his A1c is within normal. He reports being allergic to Sulfa drugs. PHYSICAL EXAMINATION GENERAL: He is a moderately overweight, otherwise healthy looking white male who looks good for his age. VITAL SIGNS: Blood pressure 140/80, pulse of 70. LUNGS: Clear. HEART: Regular and rhythmic. No murmurs. ABDOMEN: Soft. No masses. No tenderness. No CVA tenderness. RECTAL: Done earlier showed a moderately enlarged but non-suspicious prostate. IMPRESSION: 1. Suspicious bladder lesion with past history of bladder cancer. 2. Prostate enlargement and bladder outlet obstruction with good response to medical treatment and stable PSA at 2. 3. Hypertension, well controlled on treatment. 4. Hyperlipidemia, on treatment. 5. Recent episode of community acquired pneumonia, treated and fully recovered from it. PLAN: Plan is for cystoscopy and transurethral resection of the bladder lesion. I discussed the above plans in detail with the patient. All his questions were answered. [id number]/[facility] #: [id number] [facility]
[~2018-04-06 06:11] MED LIST: Buffered Lidocaine 0.9% SYRIN* 5 ML/SYR SYRINGE INTRADERM ONE; Dexamethasone IV* 4 MG/ML 1 ML (4 MG) IV SLOW PU ONE; Sodium Citrate/Citric Acid* 15 ML UDC PO ONE
[2018-04-06] MEDS ORDERED: Sodium Citrate/Citric Acid* 15 ML UDC ONE (06:23)
[2018-04-06] MEDS ORDERED: Buffered Lidocaine 0.9% SYRIN* 5 ML/SYR SYRINGE ONE (06:23)
[2018-04-06] MEDS ORDERED: cefTRIAXone(*) 2 GM ADDV.VIAL IVPB ONE (06:23)
[2018-04-06] MEDS ORDERED: Dexamethasone IV* 4 MG/ML 1 ML (4 MG) ONE (06:23)
[2018-04-06] MEDS ORDERED: fentaNYL* 50 MCG/ML 2 ML VIAL (100 MCG VIAL) ONE ×2 (07:21→08:13)
[2018-04-06] MEDS ORDERED: Midazolam* 1 MG/ML 2 ML VIAL (2 MG) ONE ×2 (07:21→09:33)
[2018-04-06] MEDS ORDERED: Propofol* 10 MG/ML 20 ML BTL IV PUSH ONE (07:22)
[2018-04-06] MEDS ORDERED: Lidocaine 2% PF * 5 ML VIAL ONE (07:22)
[2018-04-06] MEDS ORDERED: fentaNYL* 50 MCG/ML 2 ML VIAL (100 MCG VIAL) IV PRN (07:55)
[2018-04-06] MEDS ORDERED: HYDROmorphone INJ* 1 MG/ML CARPUJECT SYRINGE IV PRN (07:55)
[2018-04-06] MEDS ORDERED: oxyCODONE TAB* 5 MG TAB PO PRN (07:55)
[2018-04-06] MEDS ORDERED: Naloxone* 0.4 MG/ML 1 ML VIAL IV PRN (07:55)
[2018-04-06] MEDS ORDERED: Ketorolac INJ* 30 MG/ML 1 ML VIAL ONE (07:55)
[2018-04-06] MEDS ORDERED: Ondansetron INJ* 2 MG/ML VIAL IV PRN (07:55)
[2018-04-06] MEDS ORDERED: oxyCODONE/Acetamin 5/325 MG* TAB PO PRN (07:55)
[2018-04-06] MEDS ORDERED: PROCHLORPERAZINE INJ 5 MG/ML 2 ML VIAL IV PRN (07:55)
[2018-04-06] MEDS ORDERED: Acetaminophen TAB* 325 MG PO PRN (07:55)
[2018-04-06] MEDS ORDERED: Levalbuterol 0.63MG/3ML NEB* UNIT OF USE INH PRN (07:55)
[2018-04-06] MEDS ORDERED: Morphine PF AMP (0.5MG/ML)* 5 MG/10 ML AMP ONE (08:49)
[2018-04-06] MEDS ORDERED: oxyCODONE/Acetamin 5/325 MG* TAB ONE (08:50)
[2018-04-06] MEDS ORDERED: Lidocaine 2% JELLY* 6 ML JELLY TOPICAL ONE (10:39)
[2018-04-06 10:56] VITALS: BP 142/66
--- NOTE | 2018-04-06 12:48 | OP ---
CC: Dr. Hannah Fink * DATE OF OPERATION: 04/06/18 - [facility] DATE OF : 40 SURGEON: John Soriano MD ANESTHESIOLOGIST: Dr. Delores Maddox. ANESTHESIA: General. PRE-OP DIAGNOSES: 1. Bladder tumor. 2. Benign prostatic hyperplasia. POST-OP DIAGNOSES: 1. Bladder tumor, right base of bladder, 1 cm. 2. Large obstructing prostate at median lobe. OPERATIVE PROCEDURE: 1. Transurethral resection of bladder tumor (1 cm). 2. Partial transurethral resection of the prostate. INDICATIONS: Mr. Tabor is a 77-year-old white male whom I have been following since 1999 because of bladder tumor and carcinoma in situ treated with resection and intravesical BCG. He has done well and has been on yearly cystoscopies. He also has long history of bladder outlet obstruction, prostate enlargement, and had been maintained on finasteride and on tamsulosin. His recent cystoscopy showed a suspicious looking lesion in the right base of the bladder between the trigone and the bladder neck. He is brought in for resection of the tumor. PATHOLOGY AT CYSTOSCOPY: The penile and bulbar urethra looked normal. The prostatic urethra measured 3.5 cm in length and there was a significant degree of obstruction, mostly by a large obstructing prominent median lobe occluding the bladder neck. The median lobe made also the proper visualization of the tumor, the bladder neck and the trigone suboptimal. A 1 cm papillary tumor was noted in the Rt base of the bladder between the Rt trigone and the bladder neck. Examination of the bladder showed moderately diffuse trabeculations. There were no other suspicious bladder lesions seen. No changes to suggest carcinoma in situ. The ureteral orifices looked normal. No calculi or diverticula were noted. Following resection of the median lobe, the bladder neck and the trigone were well visualized and no other lesions were seen. DESCRIPTION OF PROCEDURE: After successful general anesthesia, the patient was placed in the lithotomy position and was prepped and draped for cystoscopy. Rigid cystoscopy was performed. The bladder was inspected. There was incomplete visualization of the tumor and of the bladder neck due to the prominent vascular median lobe. The resectoscope was then introduced inside the bladder. The inflow and outflow were adjusted to avoid overdistension of the bladder. After some difficulty, the tumor was identified and was resected deep to muscle. The specimen was removed and sent for pathology. The site of the biopsy was then thoroughly fulgurated with coagulation current achieving very good hemostasis. The rest of the bladder neck could not be well visualized due to the prominent median lobe. It was felt to be likely that the patient will go into urinary retention postoperatively because of the obstructing median lobe. Decision was then made to resect the median lobe and the bladder neck circumferentially to improve the bladder voiding and mostly to ensure a more complete visualization of the bladder neck and the trigone to rule out any other tumors. The median lobe was then resected down to its base. Resection of the protruding portions of the lateral lobes inside the bladder neck were also resected. The bleeders were electrocoagulated. At the completion of the resection of the partial resection of the prostate, there was wide open bladder neck and the lateral lobes were only partially occluding. It is felt that the patient's voiding should improve significantly. After evacuating of all the resected prostate chips and assuring a very good hemostasis, the resectoscope was removed. A size 22-Japanese Redmond catheter was passed inside the bladder and the balloon inflated with 20 cc of water. Irrigation yielded clear returns. The patient tolerated the procedure well and left the operating room in good condition. The plan is to observe the patient in the recovery room. If his urine remains clear, he will be discharged home on the Redmond catheter and it will be removed in the office in 4 or 5 days. [id number]/[facility] #: [id number] [facility]
== END 2018-04-06 11:02 | disposition home or self-care (01) ==
LOC: OR 06:11
PROVIDERS: ATTEND Urology
DX: C67.0 Malignant neoplasm of trigone of bladder (principal); N40.1 Benign prostatic hyperplasia with lower urinary tract symptoms; N13.8 Other obstructive and reflux uropathy; I10 Essential (primary) hypertension; E78.5 Hyperlipidemia, unspecified; Z79.899 Other long term (current) drug therapy
CPT/HCPCS: 88305; A9270-GY; J0696; J1100; J1885; J2250; J2704; J3010